=== PATIENT | female | born 2000 | race Hispanic/Latino ===

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

== ENCOUNTER 2022-04-13 08:02 | Emergency (ER) | payer MEDICAID, OTHER ==
[~2022-04-13] VITALS: Ht 157.5 cm; Wt 65.8 kg
[2022-04-13 08:24] LABS: APPEARANCE,URINE CLEAR (CLEAR); BILIRUBIN,URINE NEGATIVE (NEGATIVE); COLOR,URINE COLORLESS (YELLOW); GLUCOSE, URINE (UA) NEGATIVE (NEGATIVE); KETONES,URINE NEGATIVE (NEGATIVE); LEUKOCYTE ESTERASE ,URINE NEGATIVE Leu/uL (NEGATIVE); NITRATE,URINE NEGATIVE (NEGATIVE); OCCULT BLOOD,URINE NEGATIVE (NEGATIVE); PROTEIN,URINE NEGATIVE (NEGATIVE); UROBILINOGEN,URINE 0.2 mg/dL (0.2-1.0)
[2022-04-13 08:32] LABS: HCG,QUALITATIVE URINE NEGATIVE (NEGATIVE)
[2022-04-13 09:34] LABS: BASOPHILS % (AUTO) 0.3 % (0.0-5.0); EOSINOPHILS % (AUTO) 0.2 % (0.0-8.0); HEMATOCRIT 37.8 % (36-48); MEAN CORPUSCULAR HEMOGLOBIN 30.1 pg (27.0-33.0); MEAN CORPUSCULAR HGB CONC 34.1 g/dL (32.0-36.0); MEAN CORPUSCULAR VOLUME 88.1 fL (79-99); MONOCYTES % (AUTO) 6.3 % (3.0-13.0); NEUTROPHILS % (AUTO) 75.9 % (40.0-77.0); PLATELET COUNT (AUTO) 304 K/uL (130-400); RED BLOOD CELL COUNT(AUTO) 4.29 MIL/uL (4.00-5.50); RED CELL DISTRIBUTION WIDTH 12.8 % (11.0-15.5); WHITE BLOOD COUNT (AUTO) 8.9 K/uL (4.8-10.8)
[2022-04-13 09:46] LABS: CREATININE 0.7 mg/dL (0.5-1.5); POTASSIUM 3.8 mmol/L (3.5-5.1)
[2022-04-13 09:51] LABS: ALBUMIN 3.9 g/dL (3.5-5.0); TOTAL PROTEIN, SERUM 7.9 g/dL (6.0-8.3)
[2022-04-13] MEDS ORDERED: 0.9%NACL 1000ML 1,000 ML IV ONE (10:00)
[2022-04-13] MEDS ORDERED: MORPHINE 2 MG SYG IVP ONE (10:00)
[2022-04-13] MEDS ORDERED: IOHEXOL 350 MG/ML 100ML INFUS..BTL IV ONE (10:29)
[2022-04-13] MEDS ORDERED: BACITRACIN 1 EACH PACKET TP ONE (11:07)
[2022-04-13 13:12] VITALS: BP 123/75
[2022-04-13] MEDS ORDERED: IBUP-2070 PO (13:27)
== END 2022-04-13 14:01 | disposition home or self-care (01) ==
LOC: EDH 08:02
DX: S00.03XA Contusion of scalp, initial encounter (principal); S60.221A Contusion of right hand, initial encounter; S20.211A Contusion of right front wall of thorax, initial encounter; S70.11XA Contusion of right thigh, initial encounter; V89.9XXA Person injured in unspecified vehicle accident, initial encounter; Y93.89 Activity, other specified; Y92.89 Other specified places as the place of occurrence of the external cause; Y99.8 Other external cause status
CPT/HCPCS: 99285; 70450; 96374; 96361; 80053; 85025; 81003; 81025; 36415; 73130; 72125; 71260; 74177; J7030; Q9967